=== PATIENT | male | born 1995 | race African-American/Black ===

== ENCOUNTER 2018-06-29 01:19 | Emergency (ER) | payer MEDICAID ==
[~2018-06-29] VITALS: Ht 180.3 cm; Wt 72.6 kg
[~2018-06-29 01:19] MED LIST: GABAPENTIN800 MG ORAL; IBUPROFEN600 MG ORAL
[2018-06-29 01:30] VITALS: BP 133/89
[2018-06-29 03:30] VITALS: BP 130/87
[2018-06-29 05:30] VITALS: BP 132/88
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
[2018-06-29 07:30] VITALS: BP 132/86
[2018-06-29 08:52] VITALS: BP 132/86
[2018-06-29 08:53] LABS: APPEARANCE,URINE CLEAR; BILIRUBIN, URINE NEGATIVE (NEGATIVE); GLUCOSE, URINE (UA) NEGATIVE (NEGATIVE); KETONES,URINE NEGATIVE (NEGATIVE); LEUKOCYTE ESTERASE ,URINE NEGATIVE (NEGATIVE); NITRITE,URINE NEGATIVE (NEGATIVE); PH,URINE 5 (4.5-8.0); PROTEIN,URINE 1+ (NEGATIVE); UROBILINOGEN,URINE 1 MG/DL (0.0-1.0)
[2018-06-29 08:57] LABS: BASOPHILS % (AUTO) 1.6 % (0.0-2.0); EOSINOPHILS % (AUTO) 3.8 % (0.0-3.0); HEMOGLOBIN 13.1 G/DL (14.2-18.0); LYMPHOCYTES % (AUTO) 33.5 % (20.0-45.0); MEAN CORPUSCULAR VOLUME 82 FL (80-99); MONOCYTES % (AUTO) 9.8 % (1.0-10.0); NEUTROPHILS % (AUTO) 51.4 % (45.0-75.0); PLATELET COUNT 341 K/UL (150-450); RED BLOOD COUNT 5.14 M/UL (4.70-6.10); RED CELL DISTRIBUTION WIDTH 12.3 % (11.6-14.8)
[2018-06-29 09:00] LABS: ANION GAP 7 mmol/L (5-15); BLOOD UREA NITROGEN 6 mg/dL (7-18); CALCIUM 9.3 MG/DL (8.5-10.1); CARBON DIOXIDE 28 MMOL/L (21-32); CHLORIDE 103 MMOL/L (98-107); CREATININE 0.9 MG/DL (0.55-1.30); POTASSIUM 3.7 MMOL/L (3.5-5.1); SODIUM 138 MMOL/L (136-145)
[2018-06-29 09:02] LABS: COLOR,URINE YELLOW
[2018-06-29 09:04] LABS: ALANINE AMINOTRANSFERASE 25 U/L (12-78); ALBUMIN 3.2 G/DL (3.4-5.0); ALBUMIN/GLOBULIN RATIO 0.7 (1.0-2.7); ALKALINE PHOSPHATASE 81 U/L (46-116); ASPARTATE AMINO TRANSFERASE 18 U/L (15-37); BILIRUBIN,TOTAL 0.5 MG/DL (0.2-1.0)
[2018-06-29 19:10] VITALS: BP 130/85
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
== END 2018-06-29 12:15 | disposition home or self-care (01) ==
LOC: EDBD 01:19 → EMR 02:50
DX: Z04.89 Encounter for examination and observation for other specified reasons (principal); R79.89 Other specified abnormal findings of blood chemistry; F20.9 Schizophrenia, unspecified; I10 Essential (primary) hypertension
CPT/HCPCS: 36415; 80053; 80307; 80329; 81003; 85025; 99284